=== PATIENT | female | born 1990 | race Caucasian/White ===

== ENCOUNTER 2021-01-25 07:58 | Emergency (ER) | payer SELFPAY ==
[2021-01-25 08:07] VITALS: BP 119/93; PULSE 65; RESP 20; TEMP 36.5; O2SAT 100
--- NOTE | 2021-01-25 08:12 | ECG_ITS ---
Measurements Intervals [place] Rate: 67 P: 55 MA: 159 QRS: 31 QRSD: 82 T: 1 QT: 371 QTc: 394 Interpretive Statements SINUS RHYTHM WITH SINUS ARRHYTHMIA BASELINE ARTIFACT- II, III, AVR, AVL, AVF, V1, V3-V6 NORMAL ECG Electronically Signed On 01-25-2021 13:28:42 CDT by Axel Goodman D.O.
[2021-01-25 08:27] LABS: Basophils Percent Auto 0.6 % (0.2-1.2); Eosinophils Absolute Auto 0.1 K/mm3 (0-0.3); Eosinophils Percent Auto 1.3 % (0-4.4); Hematocrit 41.3 % (37.0-47.0); Hemoglobin 13.5 g/dL (12.0-15.0); Immature Granulocyte Absolute 0.01 K/mm3 (0.00-0.031); Immature Granulocyte Percent A 0.2 % (0-0.5); Lymphocytes Absolute Auto 1.96 K/mm3 (0.9-3.2); Lymphocytes Percent Auto 31.6 % (18.3-44.2); Mean Corpuscular HGB Conc 32.7 g/dl (32-36); Mean Corpuscular Hemoglobin 29.8 pg (26-34); Mean Corpuscular Volume 91.2 fl (80-100); Mean Platelet Volume 9.5 fl (7.4-10.4); Monocytes Absolute Auto 0.3 K/mm3 (0.1-0.6); Monocytes Percent Auto 4.5 % (2.6-8.5); Neutrophils Absolute Auto 3.8 K/mm3 (1.3-6.7); Neutrophils Percent Auto 61.8 % (45.5-73.1); Platelet Count Result 234 k/mm3 (150-375); Red Blood Count 4.53 M/mm3 (4.2-5.4); Red Cell Distribution Width 12.9 % (11.5-14.5); White Blood Count 6.2 K/mm3 (4.5-10.0)
[2021-01-25 08:34] LABS: Add Urine Microscopic? NO; Appearance Urine Clear (Clear); Bilirubin Urine Negative (Negative); Blood Urine Negative (Negative); Color Urine Yellow (Yellow); Glucose Urine UA Negative (Negative); Ketones Urine Negative (Negative); Leukocyte Esterase Ur Negative LEU/UL (Negative); Nitrate Urine Negative (Negative); Protein Urine Negative (Negative); Specific Grav Ur 1.014 (1.001-1.035); Urobilinogen Urine Negative mg/dL (<2.0)
[2021-01-25 08:38] LABS: Alanine Aminotransferase 21 U/L (4-35); Albumin Level 4.1 g/dL (3.5-5.1); Alkaline Phosphatase 95 U/L (38-126); Anion Gap 5 mmol/L (8-16); Aspartate Amino Transferase 36 U/L (14-36); Bilirubin,Total 0.8 mg/dL (0.2-1.3); Blood Urea Nitrogen 7 mg/dL (7-17); Calcium 9.2 mg/dL (8.4-10.2); Carbon Dioxide 29 mmol/L (22-30); Chloride 103 mmol/L (98-107); Estimated CRCL calculation 66 ml/min; Estimated Glomerular Filt Rate > 60; Glucose 81 mg/dL (65-110); Lipase 146 U/L (23-300); Potassium 3.5 mmol/L (3.4-5.0); Sodium 137 mmol/L (137-145)
--- NOTE | 2021-01-25 08:51 | ED.ABDPAIN ---
HPI - Abdominal Pain General Chief Complaint: Abdominal Pain Stated Complaint: Abd Pain,Chest Pain Time Seen by Provider: 01/25/21 08:03 Source: patient and RN notes reviewed Mode of arrival: ambulatory Limitations: no limitations History of Present Illness HPI narrative: This is a 30 year old female who presents for evaluation of epigastric pain. She states pain started at 6 am this morning. She describes pain as sharp pain that radiates to her back. She reports pain is chest but she is points to epigastrium. Her pain is intermittent it has currently resolved. She denies associated nausea, vomiting, cough or fever. She reports her last episode of pain last 15 minutes. She reports diarrhea yesterday but she denies melena or bloody stools. Related Data Allergies Allergy/AdvReac Type Severity Reaction Status Date / Time No Known Allergies Allergy Verified 01/25/21 08:14 Review of Systems Review of Systems: All systems reviewed & are unremarkable except as noted in HPI and below PMFSH Past Medical History Medical History (Updated 01/25/21 @ 10:15 by Azul Holcomb MD) Migraine headache Surgical History Surgical History (Updated 01/25/21 @ 08:57 by Azul Holcomb MD) Hx of cholecystectomy Social History Social History (Updated 01/25/21 @ 08:57 by Azul Holcomb MD) Smoking status: Never smoker Alcohol intake: current Gender identity (if verbalized by the patient): Female Exam Const: General: alert Orientation/consciousness: patient oriented x3 Eyes: EOM: EOMs intact bilaterally Resp: Effort & Inspection: normal respiratory effort and no retractions Auscultation: clear to auscultation bilaterally Cardio: Rate: regular rate Rhythm: regular rhythm Heart sounds: no murmurs GI: GI Palp: Yes Soft to palpation, Yes Tenderness to palpation present (GI) (epigastric) and No Guarding due to palpation present (GI) Auscultation: normal bowel sounds Skin: General skin exam: normal color Rashes: no rashes Neuro: General: patient oriented x3, moves all extremities and CN's II-XI intact bilaterally Psych: Mental Status: mental status grossly normal Affect: normal affect Course Reevaluation(s) Reevaluation #1: I Discussed with patient that labs are normal. Her pain is GI likely PUD, spasm. She denies pain currently . I discussed discharge plan and diet. Date: 01/25/21 Time: 10:13 Vital Signs Vital signs: Vital Signs Temperature 97.7 F 01/25/21 08:07 Pulse Rate 65 01/25/21 08:07 Respiratory Rate 20 01/25/21 08:07 Blood Pressure 119/93 H 01/25/21 08:07 Pulse Oximetry 100 01/25/21 08:07 Temperature 97.7 F 01/25/21 08:07 Pulse Rate 60 01/25/21 10:44 Respiratory Rate 20 01/25/21 10:44 Blood Pressure 102/77 01/25/21 10:44 Pulse Oximetry 100 01/25/21 10:44 MDM - Abdominal Pain Lab Data Attestation: I reviewed the patient's lab results. Result diagrams: 01/25/21 08:19 01/25/21 08:19 Labs: Lab Results 01/25/21 01/25/21 01/25/21 Range/Units 08:18 08:19 08:19 WBC 6.2 (4.5-10.0) K/mm3 RBC 4.53 (4.2-5.4) M/mm3 Hgb 13.5 (12.0-15.0) g/dL Hct 41.3 (37.0-47.0) % MCV 91.2 (80-100) fl MCH 29.8 (26-34) pg MCHC 32.7 (32-36) g/dl RDW 12.9 (11.5-14.5) % Plt Count 234 (150-375) k/mm3 MPV 9.5 (7.4-10.4) fl Immature Gran % (Auto) 0.2 (0-0.5) % Neut % (Auto) 61.8 (45.5-73.1) % Lymph % (Auto) 31.6 (18.3-44.2) % [place] % (Auto) 4.5 (2.6-8.5) % Eos % (Auto) 1.3 (0-4.4) % Baso % (Auto) 0.6 (0.2-1.2) % Lymph # (Auto) 1.96 (0.9-3.2) K/mm3 [place] # (Auto) 0.3 (0.1-0.6) K/mm3 Eos # (Auto) 0.1 (0-0.3) K/mm3 Baso # (Auto) 0.0 (0.0-0.1) K/mm3 Abs Immat Gran (auto) 0.01 (0.00-0.031) K/mm3 Absolute Neuts (auto) 3.8 (1.3-6.7) K/mm3 Absolute Nucleated RBC 0.0 (0.0-0.012) K/mm3 Nucleated RBC % 0.0 (0.0-0.2) % [place]
[2021-01-25 09:22] VITALS: BP 104/75; PULSE 59; RESP 20; O2SAT 100
[2021-01-25] MEDS: PANTOPRAZOLE SODIUM IV 40 MG VIAL IV PUSH (09:29)
[2021-01-25 09:33] LABS: Troponin I < 0.012 ng/mL (0.000-0.034)
[2021-01-25 10:16] VITALS: BP 98/65; PULSE 63; RESP 20; O2SAT 99
[2021-01-25 10:44] VITALS: BP 102/77; PULSE 60; RESP 20; O2SAT 100
== END 2021-01-25 10:53 | disposition home or self-care (01) ==
PROVIDERS: Emergency Provider General Practice
DX: R10.13 Epigastric pain (principal)
CPT/HCPCS: 36415; 80053; 81003; 81025; 83690; 84484; 85025; 93005; 96374; 99284; C9113